=== PATIENT | male | born 1950 | race Caucasian/White ===

== ENCOUNTER 2016-11-19 17:02 | Outpatient (CLI) | payer MEDICARE, BC ==
[2016-11-19 17:37] LABS: BUN - UREA NITROGEN 17 mg/dL (7-25); BUN/CREATININE RATIO 15.5; CALCIUM SERUM 9.5 mg/dL (8.6-10.3); CARBON DIOXIDE 31.3 mEq/L (21.0-31.0); CHLORIDE 104 mEq/L (98-107); CREATININE - SERUM 1.1 mg/dL (0.7-1.3); GLUCOSE 117 mg/dL (70-105); POTASSIUM SERUM 3.3 mEq/L (3.5-5.1); SODIUM SERUM 137 mEq/L (136-145)
== END 2016-11-19 17:20 | disposition home or self-care (01) ==
LOC: LAB 17:02
DX: K59.9 Functional intestinal disorder, unspecified (principal)
CPT/HCPCS: 36415-UA; 80048-TC